=== PATIENT | male | born 1980 | race Caucasian/White ===

== ENCOUNTER 2017-01-18 11:41 | Emergency (ER) | payer MEDICARE, MEDICAID ==
[2017-01-18 11:47] VITALS: BP 178/100
--- NOTE | 2017-01-18 11:57 | ED Physician Documentation ---
ED Addendum - Addendum Addendum: 01/18/17 11:55 per nurse Giang pt presented with non specific homicidal ideations due to the voices in his head before I even knew the pt was here he had eloped per nurse Giang police accompanied the pt to the ER and are going after him to bring him back
== END 2017-01-18 12:01 | disposition left against medical advice (07) ==
LOC: ED 11:41
DX: R45.850 Homicidal ideations (principal); Z53.21 Procedure and treatment not carried out due to patient leaving prior to being seen by health care provider

== ENCOUNTER 2017-01-18 12:23 | Emergency (ER) | payer MEDICARE, MEDICAID ==
[2017-01-18] MEDS ORDERED: LORazepam 0.5 MG TABLET PO STA (13:33)
[2017-01-18] MEDS ORDERED: LORazepam 0.5 MG TABLET ONE (13:35)
[2017-01-18 13:51] VITALS: BP 169/94
--- NOTE | 2017-01-18 13:54 | ED Physician Documentation ---
PD HPI MHE - Stated complaint Stated Complaint: MHE - Chief complaint Chief Complaint: MHE - History obtained from History obtained from: Patient, Police - History of Present Illness Primary symptom: Psychosis, Anxiety Timing - onset: Unknown Contributing factors: Off meds Similar symptoms before: Diagnosis (Schizoaffective Disorder) - Additional information Additional information: The patient is a 36-year-old homeless male who self presented earlier today requesting medication for his anxiety/schizoaffective disorder. He had expressed vague homicidal ideation to the triage nurse, but then eloped prior to being evaluated by the physician. Lianet Aviles has subsequently apprehended the patient and brought him back to the emergency department for mental health evaluation. Review of his medical record reveals evaluation here in May 2016 for anxiety and schizoaffective disorder, off medications. One year ago he was seen here requesting "check for psychosis." In June 2014 he was also evaluated here for mental health issues. He has been without medications and is homeless. He was hospitalized briefly at [facility] in 2007 or 2008, and reports 2 psychiatric hospitalizations in [place]. He reports that in the past lorazepam has helped with his anxiety. He denies suicidal or homicidal ideation. He reports daily angry outbursts, and gets in confrontations with police when he is yelling vulgarities in public. It is his desire to control his angry outbursts better so the "police will leave me alone. " He reports constant communication and voices, although he denies the voices are threatening. He is convinced that he is being monitored remotely by drones that have been placed by the [employer]. He states that they have inserted a "dual imaging testicoil" for monitoring, as part of a test program that he has been entered into for the past 4 years. He states that the [employer] brushes his teeth by remotely controlled drones. As part of the program they have also placed a placebo up his rear-end and it produces flatulence. Review of Systems Constitutional: denies: Fever Nose: denies: Congestion Throat: denies: Sore throat Cardiac: denies: Chest pain / pressure Respiratory: denies: Dyspnea, Cough GI: denies: Abdominal Pain, Nausea, Vomiting : denies: Dysuria Skin: denies: Rash Musculoskeletal: denies: Back pain Neurologic: denies: Headache Psychiatric: reports: Delusions, Anxiety. denies: Suicidal, Homicidal PD PAST MEDICAL HISTORY - Past Medical History Cardiovascular: Hypertension Respiratory: None Neuro: None Endocrine/Autoimmune: None Psych: Depression, Anxiety, Bipolar disorder, ADD/ADHD - Past Surgical History Past Surgical History: Yes Ortho: ACL reconstruction, Arthroscopic surgery - Present Medications Home Medications: Ambulatory Orders Medication Instructions Recorded Confirmed LORazepam [Ativan] 0.5 mg PO TID PRN #20 tablet 01/18/17 - Allergies Allergies/Adverse Reactions: Allergies Allergy/AdvReac Type Severity Reaction Status Date / Time acetaminophen [From Vicodin] AdvReac Respiratory Verified 01/18/17 11:47 hydrocodone bitartrate * AdvReac Respiratory Verified 01/18/17 11:47 [From Vicodin] - Living Situation Living Arrangement: reports: Homeless - Social History Does the pt smoke?: Yes Smoking Status: Current every day smoker Does the pt drink ETOH?: No Does the pt have substance abuse?: Yes Substance Use and Type: Marijuana - Immunizations Immunizations are current?: No Immunizations: TDAP >10years/unknown - POLST Patient has POLST: No PD ED PE NORMAL - Vitals Vital signs reviewed: Yes (Initially hypertensive.) - General General: Alert and oriented X 3, Well developed/nourished, Other (Clean and well groomed.) - HEENT HEENT: Atraumatic, Pharynx benign - Neck Neck: No adenopathy, No JVD - Cardiac Cardiac: RRR, No murmur - Respiratory Respiratory: No respiratory distress, Clear bilaterally - Abdomen Abdomen: Soft, Non tender, Other (Scaphoid abdomen.) - Back Back: No spinal TTP - Derm Derm: No rash - Extremities Extremities: No tenderness to palpate, Normal ROM s pain - Neuro Neuro: Alert and oriented X 3, No motor deficit, No sensory deficit PD ED PE EXPANDED - Psych Psych: Agitated (Intermittently agitated.), Delusions. No: Suicidal, Homicidal Results - Vitals Vitals: Vital Signs - 24 hr 01/18/17 13:51 Heart Rate 84 Respiratory 19 Rate Blood Pressure 169/94 H O2 Saturation 99 Oxygen O2 Source Room air PD MEDICAL DECISION MAKING - ED course Complexity details: reviewed old records, re-evaluated patient, considered differential, d/w patient ED course: The patient's presentation is significant for delusions and intermittent agitation in a homeless male with history of schizoaffective disorder. He has been without medication for at least several months. I doubt that his condition today is any different from his chronic baseline mental status. While in the emergency department he became agitated at being placed in handcuffs by the Lianet Aviles. He does however become calm when approached in a calm manner myself. He is very [id number] when describing what are very clearly delusions. However these delusions do not appear to be harmful to either himself or to others. The medical consultant was consulted, but informs me that she will not be able to evaluate the patient for several hours. I do not think it is in the patient's best interest to hold him against his will for that duration of time awaiting evaluation by medical consultant. Treatment in the emergency department included administration of lorazepam 0.5 mg orally. He is being discharged with prescription for lorazepam, 20 tablets. I discussed his condition with his primary provider's nurse, Danika, who is familiar with the patient. The patient was given contact information for [facility], but states he is not interested in contacting them. Departure - Departure Disposition: 01 Home, Self Care Clinical Impression: Schizoaffective disorder Qualifiers: Schizoaffective disorder type: unspecified Qualified Code(s): F25.9 - Schizoaffective disorder, unspecified Condition: Stable Instructions: ED Schizo Affective Disorder Follow-Up: Sugey Rudd ARNP [Credentialed Staff Provider] - Prescriptions: LORazepam [Ativan] 0.5 mg PO TID PRN #20 tablet PRN Reason: Anxiety Comments: Take lorazepam as prescribed if needed for anxiety or agitation. Follow up with your primary physician within one to 2 weeks. Call to schedule an appointment. Return to the emergency department if you develop increasing anxiety or agitation, or otherwise worsening symptoms. Discharge Date/Time: 01/18/17 13:57
== END 2017-01-18 13:57 | disposition home or self-care (01) ==
LOC: ED 12:23
DX: F25.9 Schizoaffective disorder, unspecified (principal); R45.850 Homicidal ideations; I10 Essential (primary) hypertension; Z59.0 Homelessness; F17.200 Nicotine dependence, unspecified, uncomplicated
CPT/HCPCS: 99283; 99285; A9270